=== PATIENT | male | born 1980 | race Caucasian/White ===

== ENCOUNTER 2022-04-27 23:53 | Emergency (ER) | payer OTHER, SELFPAY ==
[2022-04-27 23:56] VITALS: BP 149/95; PULSE 95; RESP 16; TEMP 36.8; O2SAT 96; BMI 23.6
--- NOTE | 2022-04-28 00:08 | PC.NURSE ---
Pt telling RN that his pain has subsided so he is leaving. This RN contacting him over [email or web address] phone to confirm. Pt states My pain is gone and I don't have health insurance. If it comes back, Ill come back.
== END 2022-04-28 00:10 | disposition left against medical advice (07) ==
PROVIDERS: Emergency Provider Emergency Medicine
DX: R10.11 Right upper quadrant pain (principal)
CPT/HCPCS: 99281; 99283